=== PATIENT | female | born 1960 ===

== ENCOUNTER 2017-04-25 14:00 | Emergency (ER) | payer BC ==
--- NOTE | 2017-04-25 15:34 | UC ---
Lower Extremity/Ankle HPI - HPI Summary HPI Summary: left lateral ankle pain and swelling --unsure but she may have rolled it a few days ago - History of Current Complaint Chief Complaint: UCLowerExtremity Stated Complaint: FOOT INJURY Time Seen by Provider: 04/25/17 15:23 Hx Obtained From: Patient ?: No Onset/Duration: Sudden Onset, Lasting Weeks - 1, Still Present Severity Initially: Moderate Severity Currently: Moderate Pain Intensity: 6 Pain Scale Used: 0-10 Numeric Aggravating Factor(s): Standing, Ambulation Alleviating Factor(s): Rest, Elevation Able to Bear Weight: Yes - with pain - Allergies/Home Medications Allergies/Adverse Reactions: Allergies Allergy/AdvReac Type Severity Reaction Status Date / Time Adhesive Tape Allergy Hives Verified 04/25/17 15:05 Latex Allergy Hives/Diff. Verified 04/25/17 15:05 Breathing/I tching Shellfish Allergy Allergy Difficulty Verified 04/25/17 15:04 Breathing/Wheezing Home Medications: Home Medications Aspirin [Aspirin 81 MG TAB] 1 tab PO DAILY 04/25/17 [History Confirmed 04/25/17] Liraglutide [Victoza] 1.8 ml SUBCUT DAILY 04/25/17 [History Confirmed 04/25/17] Metformin HCl [Glucophage] 1,000 mg PO DAILY 04/25/17 [History Confirmed ] Misc Natural Products [Black Littlejohn Concentrate] 1 tab PO DAILY 04/25/17 [ History Confirmed 04/25/17] Topiramate [Topamax 200 mg tab] 100 mg PO BID 04/25/17 [History Confirmed ] PMH/Surg Hx/FS Hx/Imm Hx Previously Healthy: No Endocrine History: Diabetes Cardiovascular History: Hypertension - Surgical History Surgical History: Yes Surgery Procedure, Year, and Place: Hysterectomy. Shunt left ureter - Family History Known Family History: Positive: None Family History: no reported cardiovascular issues in family lineage - Social History Occupation: Employed Full-time Lives: With Family Alcohol Use: Occasionally Substance Use Type: None Smoking Status (MU): Never Smoked Tobacco Review of Systems Constitutional: Negative Skin: Negative Eyes: Negative ENT: Negative Respiratory: Negative Cardiovascular: Negative Gastrointestinal: Negative Genitourinary: Negative Motor: Negative Neurovascular: Negative Musculoskeletal: Negative, Arthralgia - left ankle, Edema - left lateral ankle Neurological: Negative Psychological: Negative All Other Systems Reviewed And Are Negative: Yes Physical Exam Triage Information Reviewed: Yes Appearance: Well-Appearing, No Pain Distress, Obese Vital Signs: Initial Vital Signs Temp 98.5 F 04/25/17 14:43 Pulse 80 04/25/17 14:43 Resp 18 04/25/17 14:43 Pulse Ox 96 04/25/17 14:43 Vital Signs Reviewed: Yes Eye Exam: Normal Eyes: Positive: Conjunctiva Clear ENT Exam: Normal ENT: Positive: Normal ENT inspection, Hearing grossly normal. Negative: Nasal congestion, Nasal drainage, Trismus, Muffled/hoarse voice Dental Exam: Normal Neck exam: Normal Neck: Positive: Supple, Nontender Respiratory Exam: Normal Respiratory: Positive: Chest non-tender, Lungs clear, Normal breath sounds, No respiratory distress, No accessory muscle use Cardiovascular Exam: Normal Cardiovascular: Positive: RRR, No Murmur, Pulses Normal, Brisk Capillary Refill Musculoskeletal Exam: Normal Musculoskeletal: Positive: Strength Intact, ROM Limited @ - left ankle, Edema @ - lateral left ankle Neurological Exam: Normal Neurological: Positive: Alert, Muscle Tone Normal Psychological Exam: Normal Skin Exam: Normal Diagnostics - Radiology No standard instances Xray Interpretation: No Acute Changes Radiology Interpretation Completed By: Radiologist Lower Extremity Course/Dx - Course Course Of Treatment: joanne , gel splint, rice, follow with ortho prn - Differential Dx/Diagnosis Differential Diagnosis/HQI/PQRI: Contusion, Fracture (Closed), Sprain, Strain Provider Diagnoses: Left ankle sprain Discharge - Discharge Plan Condition: Stable Disposition: HOME Patient Education Materials: Ankle Stirrup Splint (ED), RICE Therapy (ED), Swollen Ankle Joint (ED) Referrals: Adela Noble MD [Medical Doctor] - 3 Days No Primary Care Phys,NOPCP [Primary Care Provider] -
--- NOTE | 2017-04-25 16:24 | RAD ---
Indication: Left ankle injury. 3 views of left ankle demonstrates no fracture. Ankle mortise is intact. No other bone or joint abnormality is identified. IMPRESSION: No fracture of the left ankle is noted.
[2017-04-25] MEDS ORDERED: Phenylephrine 0.5% NASAL* BTL LEFT NARE ONE (16:45)
== END 2017-04-25 17:14 | disposition home or self-care (01) ==
LOC: UCEAST 14:00
DX: S93.402A Sprain of unspecified ligament of left ankle, initial encounter (principal); E11.9 Type 2 diabetes mellitus without complications; I10 Essential (primary) hypertension; Z91.040 Latex allergy status; Z91.013 Allergy to seafood; Z91.048 Other nonmedicinal substance allergy status; Z51.89 Encounter for other specified aftercare; Z79.84 Long term (current) use of oral hypoglycemic drugs; X58.XXXA Exposure to other specified factors, initial encounter
CPT/HCPCS: 99203; G0463